=== PATIENT | female | born 1935 | race Caucasian/White ===

== ENCOUNTER 2017-12-26 10:51 | Emergency (ER) | payer MEDICARE ==
[~2017-12-26] VITALS: Ht 165.1 cm; Wt 61.7 kg
[~2017-12-26 10:51] MED LIST: ACETAMINOPHEN-1 EAC1 PO; CALCIUM 500 +1 EAC5 PO; CALCIUM 600 +1 EAC1 PO; CARVEDILOL12.5 MG PO; COLACE100 MG PO; COZAAR 25 MG TA25 M1 PO; KEPPRA XR750 MG PO; MIRALAX17 GM PO; ONDANSETRON HCL4 M2 PO; PERCOCET 7.5-31 EACH PO; SODIUM CHLORIDE1 G2 PO; TYLENOL325 MG PO; XARELTO15 MG PO; XARELTO20 MG PO
[2017-12-26] MEDS ORDERED: COUMADIN 3 MG TA3 M1 PO (11:11)
[2017-12-26 11:14] LABS: ABSOLUTE BASOPHILS 0.1 thou/uL (0.0-0.2); ABSOLUTE EOSINOPHILS 0.2 thou/uL (0.0-0.7); ABSOLUTE LYMPHOCYTES 2.2 thou/uL (0.8-5.3); ABSOLUTE MONOCYTES 0.8 thou/uL (0.0-1.2); ABSOLUTE NEUTROPHILS 5.1 thou/uL (1.6-8.1); BASOPHILS 0.9 %; EOSINOPHILS 2.2 %; HEMATOCRIT 34.5 % (37.0-47.0); HEMOGLOBIN 11.8 gm/dL (12.0-15.0); LYMPHOCYTES 26.1 %; MCH 30.5 pg (26.0-34.0); MCHC 34.2 g/dL (28.0-37.0); MCV 89.1 fL (80.0-100.0); MONOCYTES 9.3 %; MPV 6.4 fl. (7.2-11.1); NUCLEATED RBCS 0 /100WBC; PLATELET COUNT* 323 thou/uL (150-400); POLYS 61.5 %; RBC 3.87 mil/uL (4.20-5.00); WBC 8.3 thou/uL (4.0-11.0)
[2017-12-26 11:19] LABS: PROTIME 19.7 Seconds (9.20-11.50)
[2017-12-26 11:31] LABS: ANION GAP 6 mmol/L (7-16); BUN 12 mg/dL (7-18); CALCIUM 7.9 mg/dL (8.5-10.1); CHLORIDE 88 mmol/L (98-107); CO2 28 mmol/L (21-32); CREATININE 0.7 mg/dL (0.6-1.3); GLUCOSE 89 mg/dL (70-99); POTASSIUM 4.3 mmol/L (3.5-5.1); SODIUM 122 mmol/L (136-145)
[2017-12-26 11:37] LABS: ALBUMIN 2.7 g/dL (3.4-5.0); ALKALINE PHOSPHATASE 80 U/L (46-116); LIPASE 165 U/L (73-393); NT-PRO BRAIN NAT PEPTIDE 860 pg/mL (<300); SGOT 34 U/L (15-37); SGPT 30 U/L (30-65); TOTAL BILIRUBIN 0.3 mg/dL (<0.1-1.0); TOTAL PROTEIN 5.8 g/dL (6.4-8.2); TROPONIN-I LEVEL <0.06 ng/mL (<0.06)
[2017-12-26] MEDS ORDERED: SODIUM CHLORIDE1 G2 PO (12:01)
[2017-12-26 12:06] VITALS: BP 131/41
--- NOTE | 2017-12-26 14:40 | EKG ---
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 JACOME : 1935 Requested By: Edgar Elizabeth Order Number: [id number] MD: Reza Morales Measurements Intervals [place] Rate: 51 P: 0 UT: 186 QRS: -8 QRSD: 144 T: 150 QT: 487 QTc: 449 Interpretive Statements Sinus rhythm Left atrial enlargement Left bundle branch block Compared to ECG 04/14/2017 18:09:34 Atrial abnormality now present ST (T wave) deviation no longer present Electronically Signed On 12-26-2017 14:40:40 CDT by Reza Morales [email or web address] <ELECTRONICALLY SIGNED> By: Reza Morales MD, [facility] 12/26/17 1440 [id number] Reza Morales MD, [facility] /EPI
== END 2017-12-26 13:04 | disposition home or self-care (01) ==
LOC: M.ERS 10:51
PROVIDERS: Emergency Medicine
DX: E87.1 Hypo-osmolality and hyponatremia (principal); I10 Essential (primary) hypertension; Z88.6 Allergy status to analgesic agent; Z91.018 Allergy to other foods; Z87.440 Personal history of urinary (tract) infections; Z96.642 Presence of left artificial hip joint